=== PATIENT | male | born 1955 | race Caucasian/White ===

== ENCOUNTER → 2019-05-25 | Outpatient (CLI) | payer BC, OTHER ==
--- NOTE | 2019-05-29 10:28 | SLEEPHOME ---
DIAGNOSTIC HOME SLEEP TEST ORDERED BY: NAVA Kay DATE OF STUDY: 06/11/2019 INDICATIONS: Diagnostic home sleep testing was performed due to concern for the obstructive sleep apnea syndrome. For testing a nocturnal T3 respiratory monitoring device was used. Continuous record was made of pulse oxygen saturation airflow, chest, abdominal strain and body position. 9 hours and 59 minutes of data were reviewed. There 9 hours and 24 minutes marked as time in bed during the interval marked time in bed there were 174 respiratory events identified of 10 seconds in duration or greater for respiratory event index of 18.5. The events were primarily obstructive. Baseline pulse rate 46, pulse rate ranged from 42-60. Baseline saturation 92. Lowest oxygen saturation 77. Testing was performed in both the supine and non-supine positions. IMPRESSION: Abnormal home sleep testing with repetitive respiratory events and oxygen desaturations to 77% with a respiratory event index of 18.5 is consistent with the obstructive sleep apnea syndrome. RECOMMENDATION: The patient should be referred for formal sleep evaluation.
== END ==
LOC: M SLEEP HO 11:08
PROVIDERS: ATTEND Nurse Practitioner Family
DX: G47.30 Sleep apnea, unspecified (principal)

== ENCOUNTER → 2021-05-22 | Outpatient (CLI) | payer MEDICARE, BC | LOC: M PLARAD 15:36 | PROVIDERS: ATTEND Internal Medicine | DX: H81.13 Benign paroxysmal vertigo, bilateral (principal) ==

== ENCOUNTER → 2022-03-10 | Outpatient (CLI) | payer MEDICARE, BC | LOC: M PLAIMG 07:17 | PROVIDERS: ATTEND Internal Medicine | DX: Q07.00 Arnold-Chiari syndrome without spina bifida or hydrocephalus (principal); M27.40 Unspecified cyst of jaw; M25.78 Osteophyte, vertebrae; M50.221 Other cervical disc displacement at C4-C5 level ==